=== PATIENT | male | born 1970 | race Caucasian/White ===

== ENCOUNTER → 2017-04-02 | Outpatient (CLI) | payer BC ==
--- NOTE | 2017-04-02 14:00 | CONS ---
DATE OF CONSULTATION: 04/02/2017 CONSULTATION/NEW PATIENT EVALUATION: A 46-year-old gentleman who has evaluated in the [facility] Center for obstructive sleep apnea-hypopnea syndrome. HISTORY OF PRESENT ILLNESS/SLEEP-WAKE EVALUATION: Patient had been diagnosed with obstructive sleep apnea about 20 years ago, after that underwent UPPP and nasal surgery. I feel some improvements but over the years, it is again worse. SLEEP SCHEDULE: Presently his sleep schedule is from 7 to 8 p.m. until 3:15 a.m. and on weekends from 9 p.m. until 7 a.m. FALLING ASLEEP: No problem with falling asleep. He has a TV set in bedroom. DURING SLEEP: Sleeps usually on the side position. He wakes up from sleep 4 times with up to 3 episodes of nocturia, dry mouth, heartburn and sweating. DURING THE DAY/WAKE STATE: In the morning he wakes up tired, falling asleep during the day. Prince Sleepiness Scale increased to 12. Positive history of sexual dysfunction. PAST MEDICAL HISTORY: Positive for allergy, sinus problems, sometimes problem to breath through the nose. MEDICATIONS: 1. Zyrtec. 2. Flonase. 3. Penicillin at the present time for toothache. PAST SURGICAL HISTORY: Vasectomy, UPPP and nasal surgery for obstructive sleep apnea in about 1997. SOCIAL HISTORY: Positive for smoking 1 pack a day for 30 years. Alcohol consumption occasional. REVIEW OF SYSTEMS: Multiple awakenings from sleep, sleepiness during the day. FAMILY HISTORY: Hypertension, heart problems, sleep apnea, snoring. During physical exam, a 46-year-old gentleman without distress. BP 143/82, HR 88, RR 16. Height 5, 10. Weight 235. BMI 33.7. Neck 16-1/2 inches in circumference. Temperature 98.0. Oxygen saturation at room air 97%. Oropharynx, moderately low position of soft palate status post UPPP. NECK: Supple. No JVD. Thyroid is not palpable. LUNGS: Clear to percussion and to auscultation. Good air exchange. No wheezing or rhonchi. HEART: S1, S2 regular. No murmurs, gallops or rubs. ABDOMEN: Soft and nontender. Bowel sounds are present. No organomegaly appreciated. EXTREMITIES: No clubbing or cyanosis. 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 Cranial nerves 2 to 7 intact. There is no fasciculation or atrophy noted. No focal deficits observed. IMPRESSION: 1. Snoring, witnessed episodes of stopped breathing during the sleep, history of obstructive sleep apnea-hypopnea in the past, sleepiness, Prince sleepiness scale is 12, obstructive sleep apnea-hypopnea syndrome. 2. Obesity; body mass index of 33.7. 3. Sinus problems. 4. Status post UPPP and nasal surgery. 5. Status post vasectomy. 6. Allergy. 7. Sinus problems. PLAN: 1. Polysomnography for evaluation of patient's breathing during sleep. 2. CPAP/BiPAP titration if sleep study confirms obstructive sleep apnea-hypopnea syndrome. 3. Preferable position during sleep on the side. 4. No driving if patient feels any sleepiness. Patient is aware of civil and criminal liability for unsafe driving. 5. I will see patient for follow-up visit to explain results of the testing and following plan. Sincerely, Ross Peña MD, PhD, FAASM. Diplomat of [place] [employer], Sleep Medicine Board by [place] [employer] [place] [employer] Marine Fuel Dock Attendant of [facility] [place]
== END ==
LOC: SLEEP 11:38
PROVIDERS: ATTEND Internal Medicine
DX: G47.33 Obstructive sleep apnea (adult) (pediatric) (principal); E66.9 Obesity, unspecified; J34.89 Other specified disorders of nose and nasal sinuses; Z68.33 Body mass index [BMI] 33.0-33.9, adult; Z87.891 Personal history of nicotine dependence; Z79.899 Other long term (current) drug therapy
CPT/HCPCS: 99211

== ENCOUNTER → 2017-09-17 | Outpatient (CLI) | payer BC, OTHER ==
--- NOTE | 2017-09-17 16:08 | PN ---
PROGRESS NOTE DATE OF SERVICE: 09/17/2017 A 47-year-old gentleman has been followed in the Sleep Center for treatment of obstructive sleep apnea-hypopnea syndrome. I discussed results of recent home sleep apnea test and CPAP titration. Home sleep apnea test showed severe sleep apnea. CPAP titration showed at the pressure of 15 patient respiration normalized with a low blood pressure still had some abnormalities of respiration. The patient was started on treatment with CPAP about 2 months ago. According to him, he feels better with the machine, feels more energy during the day. [place] Sleepiness Scale today is 2. No snoring with the machine normal. I checked patient's CPAP unit. CPAP pressure is 15. Usage is 29/30 nights more than 4 hours. Average usage is 7.6 hours. Leak is 29 L/minute which is borderline and acceptable. Total apnea-hypopnea index for the last month 0.6 only which is perfect. MEDICATIONS: None. PHYSICAL EXAM: Patient in no distress BP 130/73, HR 90, RR 16, weight 231, temp 98.6, oxygen saturation room air 97%. Oropharynx moderately low position of soft palate. Abdomen slightly obese. Neck Supple, no JVD. Thyroid is not palpable. LUNGS Clear to percussion and to auscultation. Good air exchange. No wheezing or rhonchi. HEART S1, S2 regular. No murmurs, gallops, or rubs. ABDOMEN: Obese. Soft and nontender. Bowel sounds are present. No organomegaly appreciated. EXTREMITIES No clubbing or cyanosis. QUANTITATIVE ANALYST DEVELOPER Awake, alert, and oriented X3. Cranial nerves 2 to 7 intact. There is no fasciculation or atrophy noted. No focal deficits observed. IMPRESSION: 1. Severe obstructive sleep apnea-hypopnea syndrome; apnea-hypopnea index 64.9 with oxygen desaturation to 76%, under control with CPAP at 15 cm of water. The patient demonstrated practically 100% compliance with treatment benefitting from treatment. 2. Obesity. 3. Status post uvulopalatopharyngoplasty and nasal surgery. 4. Status post . 5. History of sinusitis after patient was started on treatment with CPAP his problem with the nose improved. PLAN: 1. Continue treatment with CPAP every night for the whole night. 2. Losing weight. 3. Sleep hygiene with regular time in bed for at least 8 hours. 4. No driving if feeling sleepiness. 5. Followup visit in about 1 year after we did the sleep study. Thank you very much for allowing me to participate in management of your patient. Sincerely, MIKEL / RIVERA: [id number] / SHERRI
== END | disposition home or self-care (01) ==
LOC: SLEEP 13:43
PROVIDERS: ATTEND Internal Medicine
DX: G47.33 Obstructive sleep apnea (adult) (pediatric) (principal); E66.9 Obesity, unspecified; Z79.890 Hormone replacement therapy

== ENCOUNTER → 2018-12-16 | Outpatient (CLI) | payer BC ==
--- NOTE | 2018-12-16 11:29 | SFUN ---
SLEEP CENTER FOLLOW UP NOTE DATE OF SERVICE: 12/16/2018 This 48-year-old gentleman has been followed in sleep center for treatment of obstructive sleep apnea-hypopnea syndrome. The patient successfully continued to use CPAP equipment every night without significant problems. No snoring with the machine. Tennyson Sleepiness Scale today is 3, which is normal. I checked his CPAP unit. CPAP pressure is 15 cm of water. Usage is 100% of night 30/30 nights for more than 4 hours. Average usage 7.1 hours. Leak 24 L/minute, which is borderline. Apnea-hypopnea index only 2.6, which is absolutely normal. MEDICATIONS: None. PHYSICAL EXAMINATION: During physical exam, patient in no distress. VITAL SIGNS: BP 145/74, HR 78, RR 16, weight 233 pounds, height 5 feet 9-1/2 inches, body mass index 33.9, temperature 98.1, oxygen saturation at room air 98%. HEENT: PERRLA, EOMI. Oropharynx: Extremely low position of soft palate. Mallampati 4. NECK: Supple, no JVD. Thyroid is not palpable. LUNGS: Clear to percussion and to auscultation. Good air exchange. No wheezing or rhonchi. HEART: S1, S2 regular. No murmurs, gallops, or rubs. ABDOMEN: Slightly obese. EXTREMITIES: No clubbing or cyanosis. INSURANCE CASE MANAGER: Awake, alert, and oriented X3. Cranial nerves 2 to 7 intact. There is no fasciculation or atrophy. noted. No focal deficits observed. IMPRESSION: 1. Severe obstructive sleep apnea-hypopnea syndrome; apnea-hypopnea index 64.9 with oxygen desaturation to 76% on full control with CPAP. The patient demonstrated 100% compliance with treatment benefitting from treatment. 2. Mild obesity. 3. History of allergy. 4. History of sinus problems before. 5. Status post vasectomy. PLAN: 1. Patient will continue to use CPAP equipment every night for the whole night. 2. We fitted patient with a different size of Gina view mask, a medium size. The medium size fits him better than large size. Prescription for Gina view medium size full face mask. 3. We will maintain all necessary CPAP prescription including mask, tube, filters. 4. Watching and losing weight. 5. Sleep hygiene with regular time in bed for at least 7-1/2 to 8 hours. 6. No driving if feeling sleepiness. Follow-up visit in 1 year or earlier if patient has any problems. Thank you very much for allowing me to participate in management of your patient. Sincerely, Ross Peña MD, PhD, FAASM Diplomat of [place] [employer] [place] [employer] Medicine Thermodynamicist of [facility] [place] MMODL / RIVERA: [id number] /
== END ==
LOC: SLEEP 10:20
PROVIDERS: ATTEND Internal Medicine
DX: G47.33 Obstructive sleep apnea (adult) (pediatric) (principal); E66.9 Obesity, unspecified; Z99.89 Dependence on other enabling machines and devices; Z91.09 Other allergy status, other than to drugs and biological substances; Z87.09 Personal history of other diseases of the respiratory system; Z90.89 Acquired absence of other organs; Z98.890 Other specified postprocedural states; Z68.33 Body mass index [BMI] 33.0-33.9, adult

== ENCOUNTER → 2021-08-01 | Outpatient (CLI) | payer BC ==
--- NOTE | 2021-08-01 18:45 | SFUN ---
SLEEP CENTER FOLLOW UP NOTE DATE OF SERVICE: 08/01/2021 This 50-year-old gentleman has been followed in Sleep Center for treatment of obstructive sleep apnea-hypopnea syndrome. The last time I saw this patient was about 2-1/2 years ago. The patient continues to use his CPAP equipment every night. [place] Sleepiness Scale today is 4. I checked his CPAP unit. Pressure is 15 cm of water. Usage is 30/30 nights for more than 4 hours, average 7.6 hours per night. Leak is 19 L/minute. Apnea-hypopnea index is 0.9, which is normal. The air filter is old and needs to be replaced. The cover for the air filter is broken. MEDICATIONS: None. PHYSICAL EXAMINATION: GENERAL: Pleasant patient in no distress. VITAL SIGNS: BP 128/81, HR 76, RR 15, height 5 feet 9-1/2 inches, weight 240 pounds, body mass index 34.9, temperature 98.4, oxygen saturation at room air 98%. The patient's weight increased by 7 pounds. HEENT: PERRLA, EOMI, evaluation of oropharynx showed tongue protrudes midline. Extremely low position of soft palate; Mallampati IV. NECK: Supple, no JVD. Thyroid is not palpable. LUNGS: Clear to percussion and to auscultation. Good air exchange. No wheezing or rhonchi. HEART: S1, S2 regular. No murmurs, gallops, or rubs. ABDOMEN: Obese. EXTREMITIES: No clubbing or cyanosis. 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 Cranial nerves 2 to 7 intact. There is no fasciculation or atrophy. noted. No focal deficits observed. IMPRESSION: 1. Severe obstructive sleep apnea-hypopnea syndrome; apnea-hypopnea index 64.9 with oxygen desaturation to 76%. The patient demonstrated great compliance with treatment. Normal respiration on CPAP. Apnea-hypopnea index 0.9. Benefitting from treatment. 2. Obesity; BMI 34.9. Patient's weight increased by 7 pounds since previous visit. 3. History of allergies. 4. History of sinus problems. 5. Status post . PLAN: 1. Prescription for all necessary supplies, including a new cover for the filter, filters, heated tube, nasal pillow mask was written and faxed to [facility]. 2. Patient will continue to use PAP equipment every night for the whole night. 3. Sleep hygiene with regular time in bed for at least 7-1/2 to 8 hours. 4. Precautions related to driving. No driving if feeling sleepiness. 5. I will maintain all necessary prescription for PAP supplies including mask, tube, filters. 6. Watching weight. 7. Follow-up visit in 6 months or earlier if patient has any problems. Thank you very much for allowing me to participate in the management of your patient. Sincerely, Ross Peña MD, PhD, FAASM Diplomat of [place] [employer] of Medical Specialties Sleep Medicine Board of [place] Board of Internal Medicine Mud Analysis Supervisor of [facility] [place] MMODL / IJN: [id number] /
== END ==
LOC: SLEEP 13:43
PROVIDERS: ATTEND Internal Medicine
DX: G47.33 Obstructive sleep apnea (adult) (pediatric) (principal); E66.9 Obesity, unspecified; Z87.09 Personal history of other diseases of the respiratory system; Z87.892 Personal history of anaphylaxis; Z68.34 Body mass index [BMI] 34.0-34.9, adult; Z99.89 Dependence on other enabling machines and devices